=== PATIENT | male | born 1955 | race Caucasian/White ===

== ENCOUNTER 2018-06-22 06:54 | Day surgery (SDC) | payer OTHER ==
[2018-06-22] MEDS ORDERED: LIDOCAINE 4% SOLUTION 50 ML BTL (08:21)
[2018-06-22] MEDS ORDERED: FENTAnyl 50 MCG/ML VIAL (09:08)
[2018-06-22] MEDS ORDERED: MIDAZOLAM 1 MG/ML 2 ML INJ ×3 (09:08)
== END 2018-06-22 11:24 | disposition home or self-care (01) ==
LOC: GIL 06:54
DX: Z12.11 Encounter for screening for malignant neoplasm of colon (principal); R19.5 Other fecal abnormalities; R10.9 Unspecified abdominal pain; K22.10 Ulcer of esophagus without bleeding; K29.60 Other gastritis without bleeding; K29.80 Duodenitis without bleeding; K63.5 Polyp of colon; K55.20 Angiodysplasia of colon without hemorrhage; D12.0 Benign neoplasm of cecum; K64.4 Residual hemorrhoidal skin tags
CPT/HCPCS: 43239; 88305